=== PATIENT | female | born 1930 | race Caucasian/White ===

== ENCOUNTER 2017-02-18 08:33 | Inpatient (IN) | payer BC ==
[2017-02-17 15:02] VITALS: BMI 29.4
[2017-02-18] VITALS (28 sets, daily range): BP systolic 119–164; BP diastolic 60–94; PULSE 76–118; RESP 12–25; Ht 170.2 cm; Wt 83.2 kg
[~2017-02-18] VITALS: Ht 170.2 cm; Wt 83.2 kg
--- NOTE | 2017-02-18 07:53 | HPN ---
Date/Time of Note Date/Time of Note DATE: 02/18/17 TIME: 07:53 Interval H&P Admission Note Pt. seen H&P reviewed: No system changes ORLANDO OTTO MD Feb 18, 2017 07:53
[~2017-02-18 08:33] MED LIST: CEFAZOLIN 1 GM INJ ONE; ENOX80DI12 SC; LEVO50TA83 PO; RIVA15TA PO; WARF5TAB72 PO
[2017-02-18] MEDS ORDERED: MIDAZOLAM 1 MG/ML 2 ML INJ ONE (11:13)
[2017-02-18] MEDS ORDERED: FENTAnyl 50 MCG/ML VIAL ONE (11:13)
[2017-02-18] MEDS ORDERED: ROPIVACAINE 0.2% 20 ML VIAL ONE (11:14)
[2017-02-18] MEDS ORDERED: METOCLOPRAMIDE 10 MG INJ ONE ×2 (11:14→16:35)
[2017-02-18] MEDS ORDERED: ROPIVACAINE 0.5 % 30 ML VIAL ONE (11:14)
[2017-02-18] MEDS ORDERED: ASPI-664 PO (11:15)
[2017-02-18] MEDS ORDERED: MELO-216 PO (11:15)
[2017-02-18] MEDS ORDERED: MECL-77 PO (11:15)
[2017-02-18] MEDS ORDERED: TRANEXAMIC ACID 850 MG in SOD CHLORIDE 0.9% 100 ML IVPB ONE ×4 (11:30)
[2017-02-18] MEDS ORDERED: morphine SULFATE/PF (10 MG/10 ML) INJ ONE (12:19)
[2017-02-18] MEDS ORDERED: EPHEDrine SULFATE 50 MG/5 ML SYG ONE (13:01)
[2017-02-18] MEDS ORDERED: ETOMIDATE 20 MG INJ ONE (13:48)
[2017-02-18] MEDS ORDERED: ONDANSETRON 4 MG INJ ONE ×2 (15:03→16:13)
[2017-02-18] MEDS ORDERED: POLYMYXIN/BACITRACIN 1L IRRIG ONE (15:46)
--- NOTE | 2017-02-18 16:11 | OPR ---
Date/Time of Note Date/Time of Note DATE: 02/18/17 TIME: 16:02 Operative Report Preoperative Diagnosis Right knee osteoarthritis Postoperative Diagnosis Same Operation/Procedure Performed Right total knee replacement Surgeon see signature line Measurement Coordinator None Anesthesia Type: general, spinal Estimated Blood Loss: 100 - 150 ml's Transfusion none Specimen None Grafts/Implants Melanie implants Triathlon tibia size 4 Triathlon femoral component size 4, 150 mm stem Triathlon asymmetric patella size 38 mm Triathlon tibial bearing insert, 9 mm thickness Tubes/Drains None Complications none Disposition: PACU Indications Ms. Kelsie Grace is an 86-year-old female who has had progressive pain in her right knee she has failed nonoperative treatment she now presents for an elective right total knee replacement. Risks and benefits were discussed with the patient risks including but not limited to infection, bleeding, blood clots , fracture, dislocation, nerve damage, blood vessel damage, other medical anesthetic and surgical complications were discussed. Informed consent was obtained Procedure Description DESCRIPTION OF PROCEDURE: The patient's correct extremity was identified in the preoperative area. The patient was brought back to the operating room where a spinal anesthetic was placed followed by an adductor canal block. The correct extremity was then prepped and draped in the standard sterile manner. A timeout was performed. Esmarch was used to exsanguinate. The thigh tourniquet was inflated to 250 mmHg. I then made a standard midline incision for approaching the knee. I went through skin and subcutaneous tissue, made a medial parapatellar arthrotomy. Then, flexed the knee and introduced an intramedullary alignment guide. Distal femoral cut was made. After making the femoral cut notching along the anterior aspect of the distal femur was encountered. The metaphyseal bone in this area was significantly osteopenic. A posterior stabilized femoral implant was used. The box cut was made. I then turned my attention to the tibia. An extramedullary alignment guide was used to make the tibial cut. Flexion and extension gaps were checked. There were symmetric. The knee went from full extension to full flexion. I then turned my attention to the patella. I used an [id number] mill type cutting guide, cut the patellar to appropriate thickness and sized the patella. I then trialed using a stemmed femoral component and the tibial baseplate. The patella tracked well without any external pressure. I then made the peg holes for the femoral trial. Punched the tibia. I took out all trial components. Thoroughly irrigated the bony surfaces, dried them with a lap sponge. I then proceeded to cement the tibia, femur and patellar components. A trial insert was used till the cement hardened. After the cement hardened, I thoroughly irrigted the knee. The knee was well balanced. I then let down the tourniquet, obtained adequate hemostasis. I thoroughly irrigated the knee. I then impacted the appropriate all poly insert until it locked into place and I had full range of motion with just a jog of opening with varus and valgus stress. I then turned my attention to closure. I closed the medial parapatellar arthrotomy with interrupted #1 Vicryl, subcutaneous tissue was closed with 2-0 Vicryl, skin with marisol. Dry sterile dressings were applied. The patient had good perfusion to her foot with a 2+ dorsalis pedis pulse. She was then extubated and transported to recovery in stable condition. ORLANDO OTTO MD Feb 18, 2017 16:11
[2017-02-18] MEDS ORDERED: MEPERIDINE 25 MG INJ IV PRN (16:30)
[2017-02-18] MEDS ORDERED: FENTAnyl 50 MCG/ML VIAL IV PRN (16:30)
[2017-02-18] MEDS ORDERED: SENNA/DOCUSATE NA (8.6MG/50MG) TAB PO PRN (16:30)
[2017-02-18] MEDS ORDERED: ONDANSETRON 4 MG INJ IV PRN (16:30)
[2017-02-18] MEDS ORDERED: DIPHENHYDRAMINE 50 MG INJ IV PRN (16:30)
[2017-02-18] MEDS ORDERED: MAGNESIUM HYDROXIDE 30ML CUP PO PRN (16:30)
[2017-02-18] MEDS ORDERED: NALOXONE (0.4 MG/ML) INJ IV PRN (16:30)
[2017-02-18] MEDS: CEFAZOLIN 1 GM/50 ML (PMX) 50 ML IVPB SCH (16:41)
--- NOTE | 2017-02-18 16:56 | HP ---
Date/Time of Note Date/Time of Note DATE: 02/18/17 TIME: 16:43 Assessment/Plan VTE Prophylaxis VTE Prophylaxis Intervention: LMWH Lines/Catheters IV Catheter Type (from Nrsg): Peripheral IV Urinary Cath still in place: Yes Reason Cath still needed: other (indicate) (Postoperative) Assessment/Plan Assessment/Plan 86-year-old female with: 1. Status post right TKA, POD#0 Patient going to medical surgical bed, per orthopedic surgery, she will be on Lovenox for DVT prophylaxis while inpatient will plan to change to Xarelto versus Eliquis for outpatient DVT prophylaxis post TKA at discharge. Pain control Zofran as needed for nausea, bowel regimen while narcotics PT Follow-up further recommendations per orthopedic surgery. 2. Hypothyroidism: Resume Synthroid 3. Benign positional vertigo: Continue meclizine as needed 4. Breast cancer, status post left breast lumpectomy, status post Arimidex: Stable Prophylaxis: Pepcid for GI prophylaxis, Lovenox for DVT prophylaxis Disposition: Medical surgical admit post total knee arthroplasty, internal medicine and orthopedic surgery following. HPI/ROS Admit Date/Time Admit Date/Time Feb 18, 2017 at 08:33 Hx of Present Illness Chief complaint: Elective right total knee replacement History of presenting illness: This is a 86-year-old female with previous history of right knee osteoarthritis, breast cancer status post left breast lumpectomy, spinal stenosis who was brought in electively at [facility] for scheduled right total knee arthroplasty. Postoperatively patient is being admitted to a medical surgical bed for pain management and physical therapy. When reviewing the patient's outpatient records, she apparently had a history of phlebitis of the left lower extremity after a flight. She will be on Lovenox for DVT prophylaxis while inpatient with plan to switch to Xarelto or Eliquis as outpatient according to orthopedic surgery, Dr. Simpson For now while in the PACU, patient is awake and alert, she is having a lot of nausea and also vomiting, coming out of anesthesia and complaining of right knee pain. She will be medicated appropriately. ROS Constitutional: no complaints Eyes: no complaints ENT: no complaints Respiratory: no complaints Cardiovascular: no complaints Gastrointestinal: nausea, vomiting Musculoskeletal: other (Right knee pain, status post right TKA) Skin: no complaints Neurologic: no complaints Endocrine: no complaints Lymphatic: no complaints Psychological: no complaints Immunologic: no complaints PMH/Family/Social Past Medical History Right knee osteoarthritis Benign positional vertigo Breast cancer, status post left breast lumpectomy and off Arimidex now Spinal stenosis Phlebitis of the left lower extremity after flight Aortic atherosclerosis Hypothyroidism Past Surgical History Status post left breast lumpectomy 05/25/11 Status post left TKA Status post left foot surgery Status post bilateral cataract surgery Family History Significant Family History: no pertinent family hx Social History Alcohol Use: none Smoking Status: Never smoker Drug Use: none Exam/Review of Systems Vital Signs Vitals Vital Signs Date Time Temp Pulse Resp B/P Pulse Ox O2 Delivery O2 Flow Rate FiO2 02/18/17 15:55 88 15 148/78 96 Room Air 02/18/17 15:51 2.0 02/18/17 15:41 98.1 Exam Constitutional: alert, distress (With ongoing nausea and vomiting), oriented, well developed Respiratory: clear to auscultation, normal air movement Cardiovascular: nl pulses, regular rate and rhythm Gastrointestinal: non-tender, soft Musculoskeletal: other (Status post right TKA) Extremities: normal pulses 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, nl mental status, nl speech, other ( Postoperative) Additional Comments Preoperative labs on 02/12/17 showing: Potassium 4.3 Creatinine 0.57 BUN 19 Hemoglobin 13.5 Hematocrit 39.7 Medications Medications Current Medications Sodium Chloride (NS) 1,000 ml @ 80 mls/hr [id number] IV ; Start 02/18/17 at 16:12 Ondansetron HCl 4 mg 4 mg Q4H PRN IV NAUSEA AND/OR VOMITING; Start 02/19/17 at 16:30 Cefazolin Sodium (Ancef 1 Gm/50 ml (Pmx)) 50 ml @ 100 mls/hr Q8H IVPB ; Start 02/18/17 at 16:30; Stop 02/19/17 at 08:59 Enoxaparin Sodium (Lovenox) 30 mg BID SC ; Start 02/18/17 at 21:00 Docusate Sodium (Colace) 200 mg BID PO ; Start 02/19/17 at 09:00; Stop at 08:59 Senna/Docusate Sodium (Senokot-S) 2 tab BID PRN PO CONSTIPATION; Start at 16:30 Magnesium Hydroxide (Milk Of Mag) 30 ml HS PRN PO CONSTIPATION; Start at 16:30 Naloxone HCl (Narcan) 0.2 mg Q2M PRN IV DECREASED REPIRATORY RATE; Start at 16:30 Procedures Procedures Status post right TKA BENTON SEYMOUR Feb 18, 2017 16:53
--- NOTE | 2017-02-18 16:58 | RADRPT ---
PROCEDURE: XR knee CLINICAL INDICATION: Right knee replacement TECHNIQUE: Three portable views of the right knee COMPARISON: None available FINDINGS: Status post right knee replacement. Hardware is intact. A portion of the femoral component of the ar throplasty and a portion of the patella are not included on the lateral image. It is difficult to ev aluate the space between the femoral and tibial hardware components on this portable study. Osseous structures are diffusely demineralized. IMPRESSION: 1. Status post right knee replacement. Compare to prior corresponding imaging studies. RPTAT: TT Physician Nando Date Time Electronically viewed and signed by Physician Nando on 02/18/2017 16:58 JS/
[2017-02-18] MEDS ORDERED: METOCLOPRAMIDE 10 MG INJ IV PRN (17:00)
[2017-02-18] MEDS ORDERED: NACL 0.9% 3 ML SYG IV SCH (17:00)
[2017-02-18] MEDS ORDERED: hydrALAzine 20 MG INJ IV PRN (17:00)
--- NOTE | 2017-02-18 17:44 | RADRPT ---
PROCEDURE: Right knee x-ray CLINICAL INDICATION: Post Op Film: Total Knee Replacement xray in PACU TECHNIQUE: Two views of the right knee were obtained. COMPARISON: 02/18/2017 right knee. FINDINGS: The patient is status post total knee replacement . Intact total knee prosthesis with anatomic align ment. There are postsurgical changes in the subcutaneous soft tissues. There is normal mineralization. No acute fracture or dislocation is seen. IMPRESSION: Postsurgical changes of the knee status post knee replacement. Intact prosthesis with anatomic align ment. RPTAT:AAJJ Physician Adeline Date Time Electronically viewed and signed by Physician Adeline on 02/18/2017 17:44 AXEL/
[2017-02-18] MEDS: SOD CHLORIDE 0.9% 1,000 ML IV SCH (17:57)
[2017-02-18] MEDS: METOCLOPRAMIDE 10 MG INJ IV PRN (19:36)
[2017-02-18] MEDS: FAMOTIDINE 20 MG TAB PO SCH (21:13)
[2017-02-18] MEDS: ENOXAPARIN 30 MG/0.3 ML SYG SC SCH (21:40)
[2017-02-18] MEDS: MECLIZINE 25 MG TAB PO PRN (23:29)
[2017-02-19] VITALS (7 sets, daily range): BP systolic 114–175; BP diastolic 71–78; PULSE 88–101; RESP 16–20
[2017-02-19] MEDS: CEFAZOLIN 1 GM/50 ML (PMX) 50 ML IVPB SCH ×2 (00:40→08:30)
[2017-02-19] MEDS: METOCLOPRAMIDE 10 MG INJ IV PRN ×3 (03:33→15:29)
[2017-02-19 05:23] LABS: BASOPHILS % 0.1 % (0.0-2.0); HEMATOCRIT 37.2 % (37.0-47.0); HEMOGLOBIN 12.2 g/dl (12.0-16.0); LYMPHOCYTES # 0.7 10^3/ul (0.8-2.9); LYMPHOCYTES % 8.8 % (15.0-51.0); MEAN CORPUSCULAR HEMOGLOBIN 29.8 pg (29.0-33.0); MEAN CORPUSCULAR HGB CONC 32.8 g/dl (32.0-37.0); MEAN CORPUSCULAR VOLUME 90.7 fl (82.0-101.0); MONOCYTE # 0.6 10^3/ul (0.3-0.9); MONOCYTES % 8.1 % (0.0-11.0); NEUTROPHIL # 6.6 10^3/ul (1.6-7.5); NEUTROPHILS % 82.5 % (39.0-77.0); PLATELET COUNT 188 10^3/UL (140-415); RED CELL DISTRIBUTION WIDTH 14.9 % (11.5-14.5); WHITE BLOOD COUNT 7.9 10^3/ul (4.8-10.8)
[2017-02-19] MEDS: MECLIZINE 25 MG TAB PO PRN (06:11)
[2017-02-19] MEDS: LEVOTHYROXINE 50 MCG TAB PO SCH (06:11)
[2017-02-19 06:31] LABS: MAGNESIUM 1.9 mg/dl (1.7-2.5); PHOSPHORUS 3.5 mg/dl (2.5-4.9)
[2017-02-19 06:32] LABS: CREATININE 0.57 mg/dl (0.44-1.00); POTASSIUM 4.8 mmol/L (3.5-5.1)
[2017-02-19] MEDS: SOD CHLORIDE 0.9% 1,000 ML IV SCH ×2 (06:57→16:34)
[2017-02-19] MEDS: DOCUSATE SODIUM 100 MG CAP PO SCH ×3 (08:33→21:00)
[2017-02-19] MEDS: FAMOTIDINE 20 MG TAB PO SCH ×2 (08:33→20:51)
[2017-02-19] MEDS: ENOXAPARIN 30 MG/0.3 ML SYG SC SCH ×2 (09:07→20:56)
[2017-02-19 10:54] LABS: ADD UMIC YES; UR ASCORBIC ACID NEGATIVE (NEGATIVE); UR BACTERIA FEW /HPF (NONE SEEN); UR BILIRUBIN (Dip) NEGATIVE (NEGATIVE); UR BLOOD (Dip) 3+ mg/dL (NEGATIVE); UR CLARITY SLIGHTLY CLOUDY (CLEAR); UR COLOR YELLOW (YELLOW); UR GLUCOSE (Dip) 1+ mg/dL (NEGATIVE); UR KETONES (Dip) 2+ mg/dL (NEGATIVE); UR LEUKOCYTE ESTERASE (Dip) NEGATIVE Leu/ul (NEGATIVE); UR NITRITE (Dip) NEGATIVE (NEGATIVE); UR RBC 178 /HPF (0-5); UR SPECIFIC GRAVITY (Dip) 1.017 (1.003-1.030); UR SQUAMOUS EPITHELIAL CELL FEW /HPF (FEW); UR TOTAL PROTEIN (Dip) NEGATIVE (NEGATIVE); UR UROBILINOGEN (Dip) NEGATIVE (NEGATIVE)
--- NOTE | 2017-02-19 12:13 | PN ---
Date/Time of Note Date/Time of Note DATE: 02/19/17 TIME: 12:11 Assessment/Plan Lines/Catheters IV Catheter Type (from Nrsg): Peripheral IV Joshi in Place (from Nrsg): Yes Assessment/Plan Assessment/Plan Postop day 1. Patient is doing well. Pain control Encourage use of incentive spirometer Out of bed with physical therapy for gait training. Use of CPM. SCDs and Eliquis for DVT prophylaxis. Joshi catheter has been removed. Start discharge planning Subjective 24 Hr Interval Summary Patient complains of pain. She worked with physical therapy and that CPM earlier today. Exam/Review of Systems Vital Signs Vitals Vital Signs Date Time Temp Pulse Resp B/P Pulse Ox O2 Delivery O2 Flow Rate FiO2 02/19/17 08:00 97.8 80 18 175/76 100 02/18/17 21:00 Nasal Cannula 2.0 Intake and Output 02/18/17 02/18/17 02/19/17 15:00 23:00 07:00 Intake Total 1300 ml 1250 ml Output Total 1050 ml 1200 ml Balance 1300 ml -1050 ml 50 ml Exam Free Text/Dictation Right lower extremity: The dressing is clean dry and intact. The thigh and calf are soft. She is intact motor and sensory function in the right foot. Her foot is warm and well-perfused. Results Result Diagram: 02/19/17 0441 02/19/17 044 ORLANDO OTTO MD Feb 19, 2017 12:13
[2017-02-19] MEDS ORDERED: ONDANSETRON 4 MG INJ IV PRN (16:30)
--- NOTE | 2017-02-19 21:53 | PN ---
Date/Time of Note Date/Time of Note DATE: 02/19/17 TIME: 21:52 Assessment/Plan VTE Prophylaxis VTE Prophylaxis Intervention: LMWH Lines/Catheters IV Catheter Type (from Nrs): Peripheral IV Urinary Cath still in place: No Assessment/Plan Assessment/Plan [facility] 1. 86-year-old woman post-op day 1 s/p right knee total arthroplasty. Complaining of more pain than she remembers from the other knee, but still able to sleep. 2. Benign positional vertigo history * Continue meclizine as needed 3. History of breast cancer, s/p left breast lumpectomy and Arimidex treatment * Physical therapy to see * Use of CPM * Lovenox 30mg SQ BID for DVT prevention * Continue Synthroid for hypothyroidism * Full-code * Anticipating discharge home once she recovers more normal bowel function and is weight-bearing. Vick Guaman MD PhD [phone] Subjective 24 Hr Interval Summary Free Text/Dictation Complaining of considerable ongoing pain in the right knee post-operatively. Much less nauseated or dizzy. Doing exercises with the CPM. Ate some jello tonight. Still no flatus or bowel movement. Not out of bed yet when I saw her this morning.Her daughter came to visit. Exam/Review of Systems Vital Signs Vitals Vital Signs Date Time Temp Pulse Resp B/P Pulse Ox O2 Delivery O2 Flow Rate FiO2 02/19/17 20:55 99.5 96 18 163/71 90 02/18/17 21:00 Nasal Cannula 2.0 Intake and Output 02/18/17 02/18/17 02/19/17 15:00 23:00 07:00 Intake Total 1300 ml 1250 ml Output Total 1050 ml 1200 ml Balance 1300 ml -1050 ml 50 ml Exam Constitutional: alert, oriented, well developed, not uncomfortable-appearing Respiratory: clear to auscultation, normal air movement Cardiovascular: Symmetric pulses, regular rhythm, normal rate, neurovascularly intact in both legs. Gastrointestinal: non-tender, soft, no HSM, normal bowel sounds. Musculoskeletal: Status post right TKA, bandaged, dry. No rafiq arthritis in other joints. Neurological: Normal memory and executive function, normal affect, [employer] II-XII intact, nl mental status, nl speech. Peripheral motor 5/5 with downgoing toes. Results Result Diagram: 02/19/17 0441 02/19/17 0441 Results 24 hrs Laboratory Tests Test 02/19/17 04:41 02/19/17 06:10 White Blood Count 7.9 Red Blood Count 4.10 L Hemoglobin 12.2 Hematocrit 37.2 Mean Corpuscular Volume 90.7 Mean Corpuscular Hemoglobin 29.8 Mean Corpuscular Hemoglobin Concent 32.8 Red Cell Distribution Width 14.9 H Platelet Count 188 Mean Platelet Volume 10.0 # Neutrophils % 82.5 H Lymphocytes % 8.8 L Monocytes % 8.1 Eosinophils % 0.0 Basophils % 0.1 Nucleated Red Blood Cells % 0.0 Neutrophils # 6.6 Lymphocytes # 0.7 L Monocytes # 0.6 Eosinophils # 0.0 Basophils # 0.0 Nucleated Red Blood Cells # 0.0 Sodium Level 144 Potassium Level 4.8 Chloride Level 108 Carbon Dioxide Level 26 Anion Gap 15 Blood Urea Nitrogen 15 Creatinine 0.57 Glucose Level 132 Calcium Level 8.0 L Phosphorus Level 3.5 Magnesium Level 1.9 Urine Color YELLOW Urine Clarity SLIGHTLY CLOUDY A Urine pH 5.0 Urine Specific [place] 1.017 Urine Ketones 2+ H Urine Nitrite NEGATIVE Urine Bilirubin NEGATIVE Urine Urobilinogen NEGATIVE Urine Leukocyte Esterase NEGATIVE Urine Microscopic RBC 178 H Urine Microscopic WBC 32 H Urine Squamous Epithelial Cells FEW Urine Bacteria FEW A Urine Hemoglobin 3+ H Urine Glucose 1+ H Urine Total Protein NEGATIVE Medications Medications Current Medications Sodium Chloride (NS) 1,000 ml @ 80 mls/hr [id number] IV Last administered on 16:34; Admin Dose 80 MLS/HR; Start 02/18/17 at 16:12 Ondansetron HCl (Zofran Inj) 4 mg Q4H PRN IV NAUSEA AND/OR VOMITING; Start at 16:30 Enoxaparin Sodium (Lovenox) 30 mg BID SC Last administered on 02/19/17 20:56 ; Admin Dose 30 MG; Start 02/18/17 at 21:00 Docusate Sodium (Colace) 200 mg BID PO Last administered on 02/19/17 20:51; Admin Dose 200 MG; Start 02/19/17 at 09:00; Stop 02/22/17 at 08:59 Senna/Docusate Sodium (Senokot-S) 2 tab BID PRN PO CONSTIPATION; Start at 16:30 Magnesium Hydroxide (Milk Of Mag) 30 ml HS PRN PO CONSTIPATION; Start at 16:30 Naloxone HCl (Narcan) 0.2 mg Q2M PRN IV DECREASED REPIRATORY RATE; Start at 16:30 Famotidine (Pepcid) 20 mg Q12 PO Last administered on 02/19/17 20:51; Admin Dose 20 MG; Start 02/18/17 at 21:00 Meclizine HCl (Antivert) 25 mg Q8 PRN PO VERTIGO Last administered on 06:11; Admin Dose 25 MG; Start 02/18/17 at 17:00 Hydralazine HCl (Apresoline) 10 mg Q8H PRN IV ELEVATED BLOOD PRESSURE Last administered on 02/19/17 14:15; Admin Dose 10 MG; Start 02/18/17 at 17:00 Metoclopramide HCl (Reglan) 10 mg Q6H PRN IV nausea Last administered on 15:29; Admin Dose 10 MG; Start 02/18/17 at 19:00 Tramadol HCl (Ultracet) 2 tab Q6H PRN PO pain; Start 02/18/17 at 19:00 DOMINGO GUAMAN M.D. Feb 19, 2017 21:53
[2017-02-19] MEDS ORDERED: ACETAMINOPHEN 325 MG TAB PO PRN (22:00)
[2017-02-19] MEDS: traMADol-APAP 37.5-325 1 TAB PO PRN ×2 (22:13→22:32)
--- NOTE | 2017-02-19 22:34 | PN ---
Date/Time of Note Date/Time of Note DATE: 02/19/17 TIME: 22:32 Assessment/Plan VTE Prophylaxis VTE Prophylaxis Intervention: other Lines/Catheters IV Catheter Type (from Nrsg): Peripheral IV Urinary Cath still in place: Yes Subjective 24 Hr Interval Summary Free Text/Dictation Anesthesia Note A 86 year female s/p knee arthroplasty under spinal duramorph [place] is doing well, no pain, itching, headache, carley pain or neural deficit. n/ v is controlled with medicine. back is clean. care per surgery team. Exam/Review of Systems Vital Signs Vitals Vital Signs Date Time Temp Pulse Resp B/P Pulse Ox O2 Delivery O2 Flow Rate FiO2 02/19/17 20:55 99.5 96 18 163/71 90 02/18/17 21:00 Nasal Cannula 2.0 Intake and Output 02/18/17 02/18/17 02/19/17 15:00 23:00 07:00 Intake Total 1300 ml 1250 ml Output Total 1050 ml 1200 ml Balance 1300 ml -1050 ml 50 ml Results Result Diagram: 02/19/17 0441 02/19/17 0441 Results 24 hrs Laboratory Tests Test 02/19/17 04:41 02/19/17 06:10 White Blood Count 7.9 Red Blood Count 4.10 L Hemoglobin 12.2 Hematocrit 37.2 Mean Corpuscular Volume 90.7 Mean Corpuscular Hemoglobin 29.8 Mean Corpuscular Hemoglobin Concent 32.8 Red Cell Distribution Width 14.9 H Platelet Count 188 Mean Platelet Volume 10.0 # Neutrophils % 82.5 H Lymphocytes % 8.8 L Monocytes % 8.1 Eosinophils % 0.0 Basophils % 0.1 Nucleated Red Blood Cells % 0.0 Neutrophils # 6.6 Lymphocytes # 0.7 L Monocytes # 0.6 Eosinophils # 0.0 Basophils # 0.0 Nucleated Red Blood Cells # 0.0 Sodium Level 144 Potassium Level 4.8 Chloride Level 108 Carbon Dioxide Level 26 Anion Gap 15 Blood Urea Nitrogen 15 Creatinine 0.57 Glucose Level 132 Calcium Level 8.0 L Phosphorus Level 3.5 Magnesium Level 1.9 Urine Color YELLOW Urine Clarity SLIGHTLY CLOUDY A Urine pH 5.0 Urine Specific [place] 1.017 Urine Ketones 2+ H Urine Nitrite NEGATIVE Urine Bilirubin NEGATIVE Urine Urobilinogen NEGATIVE Urine Leukocyte Esterase NEGATIVE Urine Microscopic RBC 178 H Urine Microscopic WBC 32 H Urine Squamous Epithelial Cells FEW Urine Bacteria FEW A Urine Hemoglobin 3+ H Urine Glucose 1+ H Urine Total Protein NEGATIVE Medications Medications Current Medications Sodium Chloride (NS) 1,000 ml @ 80 mls/hr [id number] IV Last administered on 16:34; Admin Dose 80 MLS/HR; Start 02/18/17 at 16:12 Ondansetron HCl (Zofran Inj) 4 mg Q4H PRN IV NAUSEA AND/OR VOMITING; Start at 16:30 Enoxaparin Sodium (Lovenox) 30 mg BID SC Last administered on 02/19/17 20:56 ; Admin Dose 30 MG; Start 02/18/17 at 21:00 Docusate Sodium (Colace) 200 mg BID PO Last administered on 02/19/17 20:51; Admin Dose 200 MG; Start 02/19/17 at 09:00; Stop 02/22/17 at 08:59 Senna/Docusate Sodium (Senokot-S) 2 tab BID PRN PO CONSTIPATION; Start at 16:30 Magnesium Hydroxide (Milk Of Mag) 30 ml HS PRN PO CONSTIPATION; Start at 16:30 Naloxone HCl (Narcan) 0.2 mg Q2M PRN IV DECREASED REPIRATORY RATE; Start at 16:30 Famotidine (Pepcid) 20 mg Q12 PO Last administered on 02/19/17 20:51; Admin Dose 20 MG; Start 02/18/17 at 21:00 Meclizine HCl (Antivert) 25 mg Q8 PRN PO VERTIGO Last administered on 06:11; Admin Dose 25 MG; Start 02/18/17 at 17:00 Hydralazine HCl (Apresoline) 10 mg Q8H PRN IV ELEVATED BLOOD PRESSURE Last administered on 02/19/17 14:15; Admin Dose 10 MG; Start 02/18/17 at 17:00 Metoclopramide HCl (Reglan) 10 mg Q6H PRN IV nausea Last administered on 15:29; Admin Dose 10 MG; Start 02/18/17 at 19:00 Tramadol HCl (Ultracet) 2 tab Q6H PRN PO pain; Start 02/18/17 at 19:00 Acetaminophen (Tylenol Tab) 650 mg Q4H PRN PO headache or fever; Start at 22:00 RADHA DIMAS MD Feb 19, 2017 22:34
[2017-02-20 02:28] VITALS: BP 143/63; RESP 18
[2017-02-20 05:14] LABS: BASOPHILS % 0.2 % (0.0-2.0); EOSINOPHILS % 0.1 % (0.0-7.0); HEMOGLOBIN 10.5 g/dl (12.0-16.0); LYMPHOCYTES # 0.9 10^3/ul (0.8-2.9); LYMPHOCYTES % 10.7 % (15.0-51.0); MEAN CORPUSCULAR HEMOGLOBIN 29.8 pg (29.0-33.0); MEAN CORPUSCULAR HGB CONC 33.9 g/dl (32.0-37.0); MEAN CORPUSCULAR VOLUME 88.1 fl (82.0-101.0); MEAN PLATELET VOLUME 9.7 fl (7.4-10.4); MONOCYTES % 11.1 % (0.0-11.0); NEUTROPHIL # 6.6 10^3/ul (1.6-7.5); NEUTROPHILS % 77.4 % (39.0-77.0); PLATELET COUNT 157 10^3/UL (140-415); RED BLOOD COUNT 3.52 10^6/ul (4.20-5.40); RED CELL DISTRIBUTION WIDTH 14.6 % (11.5-14.5); WHITE BLOOD COUNT 8.6 10^3/ul (4.8-10.8)
[2017-02-20 05:31] LABS: CALCIUM 8.1 mg/dl (8.4-10.2); CREATININE 0.51 mg/dl (0.44-1.00); POTASSIUM 3.5 mmol/L (3.5-5.1)
[2017-02-20] MEDS: LEVOTHYROXINE 50 MCG TAB PO SCH (06:12)
[2017-02-20] MEDS: MECLIZINE 25 MG TAB PO PRN (06:12)
[2017-02-20 07:38] VITALS: BP 182/85; RESP 20
[2017-02-20] MEDS: SOD CHLORIDE 0.9% 1,000 ML IV SCH (07:39)
[2017-02-20] MEDS: FAMOTIDINE 20 MG TAB PO SCH ×2 (08:48→20:58)
[2017-02-20] MEDS: DOCUSATE SODIUM 100 MG CAP PO SCH ×2 (08:49→20:57)
[2017-02-20] MEDS: traMADol-APAP 37.5-325 1 TAB PO PRN ×2 (08:49→17:28)
[2017-02-20] MEDS: ENOXAPARIN 30 MG/0.3 ML SYG SC SCH ×2 (09:49→20:56)
[2017-02-20] MEDS: AMLODIPINE 5 MG TAB PO SCH ×3 (09:50→20:59)
--- NOTE | 2017-02-20 16:51 | PN ---
Date/Time of Note Date/Time of Note DATE: 02/20/17 TIME: 16:45 Assessment/Plan VTE Prophylaxis VTE Prophylaxis Intervention: LMWH Lines/Catheters IV Catheter Type (from Nrs): Saline Lock Urinary Cath still in place: No Assessment/Plan Assessment/Plan [facility] 1. 86-year-old woman post-op day 2 s/p right knee total arthroplasty. Much- improved pain today, though still not ambulating very much. * Physical therapy * Use of CPM * Lovenox 30mg SQ BID for DVT prevention * Continue Synthroid for hypothyroidism * Full-code * Discussed discharge home, anticipating return tomorrow to more normal bowel function with increased weight-bearing. Her daughter can come pick her up about 6pm Tuesday. 2. Benign positional vertigo history * Continue meclizine as needed 3. History of breast cancer, s/p left breast lumpectomy and Arimidex treatment 4. Hypertension, with elevated pressures today in the 170s systolic * Discontinue normal saline; drinking adequately * Increased amlodipine to 5mg PO BID Vick Guaman MD PhD [phone] Subjective 24 Hr Interval Summary Free Text/Dictation Feeling much better today. Still no flatus or bowel movement, but eating a normal diet now with no nausea. Much-improved pain in the right knee, with use of the CPM. Exam/Review of Systems Vital Signs Vitals Vital Signs Date Time Temp Pulse Resp B/P Pulse Ox O2 Delivery O2 Flow Rate FiO2 02/20/17 07:38 98.3 104 20 182/85 99 02/18/17 21:00 Nasal Cannula 2.0 Intake and Output 02/19/17 02/19/17 02/20/17 15:00 23:00 07:00 Intake Total 1400 ml 1500 ml Output Total 300 ml 750 ml Balance 1100 ml 750 ml Exam Constitutional: Friendly, not uncomfortable-appearing Respiratory: clear to auscultation, normal air movement Cardiovascular: Symmetric pulses, regular rhythm, normal rate, neurovascularly intact in both legs. Gastrointestinal: non-tender, soft, no HSM, normal bowel sounds. Musculoskeletal: Status post right TKA, bandaged, dry. No rafiq arthritis in other joints. 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 Peripheral motor 5/5 with downgoing toes. Results Result Diagram: 02/20/178 02/20/17 0438 Results 24 hrs Laboratory Tests Test 02/20/17 04:38 White Blood Count 8.6 Red Blood Count 3.52 L Hemoglobin 10.5 L Hematocrit 31.0 L Mean Corpuscular Volume 88.1 Mean Corpuscular Hemoglobin 29.8 Mean Corpuscular Hemoglobin Concent 33.9 Red Cell Distribution Width 14.6 H Platelet Count 157 Mean Platelet Volume 9.7 Neutrophils % 77.4 H Lymphocytes % 10.7 L Monocytes % 11.1 H Eosinophils % 0.1 Basophils % 0.2 Nucleated Red Blood Cells % 0.0 Neutrophils # 6.6 Lymphocytes # 0.9 Monocytes # 1.0 H Eosinophils # 0.0 Basophils # 0.0 Nucleated Red Blood Cells # 0.0 Sodium Level 139 Potassium Level 3.5 Chloride Level 110 Carbon Dioxide Level 23 Anion Gap 10 # Blood Urea Nitrogen 11 Creatinine 0.51 Glucose Level 98 Calcium Level 8.1 L Medications Medications Current Medications Sodium Chloride (NS) 1,000 ml @ 80 mls/hr [id number] IV Last administered on 16:34; Admin Dose 80 MLS/HR; Start 02/18/17 at 16:12 Ondansetron HCl (Zofran Inj) 4 mg Q4H PRN IV NAUSEA AND/OR VOMITING Last administered on 02/20/17 09:51; Admin Dose 4 MG; Start 02/19/17 at 16:30 Enoxaparin Sodium (Lovenox) 30 mg BID SC Last administered on 02/20/17 09:49 ; Admin Dose 30 MG; Start 02/18/17 at 21:00 Docusate Sodium (Colace) 200 mg BID PO Last administered on 02/20/17 08:49; Admin Dose 200 MG; Start 02/19/17 at 09:00; Stop 02/22/17 at 08:59 Senna/Docusate Sodium (Senokot-S) 2 tab BID PRN PO CONSTIPATION; Start at 16:30 Magnesium Hydroxide (Milk Of Mag) 30 ml HS PRN PO CONSTIPATION; Start at 16:30 Naloxone HCl (Narcan) 0.2 mg Q2M PRN IV DECREASED REPIRATORY RATE; Start at 16:30 Famotidine (Pepcid) 20 mg Q12 PO Last administered on 02/20/17 08:48; Admin Dose 20 MG; Start 02/18/17 at 21:00 Meclizine HCl (Antivert) 25 mg Q8 PRN PO VERTIGO Last administered on 06:12; Admin Dose 25 MG; Start 02/18/17 at 17:00 Hydralazine HCl (Apresoline) 10 mg Q8H PRN IV ELEVATED BLOOD PRESSURE Last administered on 02/19/17 14:15; Admin Dose 10 MG; Start 02/18/17 at 17:00 Metoclopramide HCl (Reglan) 10 mg Q6H PRN IV nausea Last administered on 15:29; Admin Dose 10 MG; Start 02/18/17 at 19:00 Tramadol HCl (Ultracet) 2 tab Q6H PRN PO pain Last administered on 02/20/17 08:49; Admin Dose 2 TAB; Start 02/18/17 at 19:00 Acetaminophen (Tylenol Tab) 650 mg Q4H PRN PO headache or fever; Start at 22:00 Amlodipine Besylate (Norvasc) 5 mg DAILY PO Last administered on 02/20/17 09: 54; Admin Dose 5 MG; Start 02/20/17 at 08:51 DOMINGO GUAMAN M.D. Feb 20, 2017 16:51
[2017-02-20] MEDS ORDERED: AMLODIPINE 5 MG TAB ONE (19:52)
[2017-02-20 20:05] VITALS: BP 159/72; RESP 20
[2017-02-21] MEDS: FAMOTIDINE 20 MG TAB PO SCH (00:11)
[2017-02-21 00:20] VITALS: BP 84/72; RESP 20
[2017-02-21 02:27] VITALS: BP 156/72; RESP 18
[2017-02-21 05:05] LABS: BASOPHILS % 0.4 % (0.0-2.0); EOSINOPHILS # 0.1 10^3/ul (0.0-0.5); EOSINOPHILS % 1.3 % (0.0-7.0); HEMATOCRIT 30.1 % (37.0-47.0); HEMOGLOBIN 10.4 g/dl (12.0-16.0); LYMPHOCYTES % 14.6 % (15.0-51.0); MEAN CORPUSCULAR HEMOGLOBIN 30.1 pg (29.0-33.0); MEAN CORPUSCULAR HGB CONC 34.6 g/dl (32.0-37.0); MEAN CORPUSCULAR VOLUME 87.2 fl (82.0-101.0); MEAN PLATELET VOLUME 10.1 fl (7.4-10.4); MONOCYTE # 0.8 10^3/ul (0.3-0.9); MONOCYTES % 11.2 % (0.0-11.0); NEUTROPHIL # 5.1 10^3/ul (1.6-7.5); NEUTROPHILS % 71.8 % (39.0-77.0); PLATELET COUNT 167 10^3/UL (140-415); RED BLOOD COUNT 3.45 10^6/ul (4.20-5.40); RED CELL DISTRIBUTION WIDTH 14.6 % (11.5-14.5); WHITE BLOOD COUNT 7.1 10^3/ul (4.8-10.8)
[2017-02-21 05:40] LABS: CREATININE 0.5 mg/dl (0.44-1.00); POTASSIUM 3.6 mmol/L (3.5-5.1)
[2017-02-21 07:21] VITALS: BP 167/77; RESP 18
[2017-02-21] MEDS: LEVOTHYROXINE 50 MCG TAB PO SCH (07:30)
[2017-02-21] MEDS: DOCUSATE SODIUM 100 MG CAP PO SCH ×2 (09:00→09:07)
[2017-02-21] MEDS: AMLODIPINE 5 MG TAB PO SCH ×2 (09:00→09:07)
[2017-02-21] MEDS: ENOXAPARIN 30 MG/0.3 ML SYG SC SCH (09:12)
--- NOTE | 2017-02-21 09:15 | PN ---
Date/Time of Note Date/Time of Note DATE: 02/21/17 TIME: 09:13 Assessment/Plan Lines/Catheters IV Catheter Type (from Nrsg): Peripheral IV Joshi in Place (from Nrsg): No Assessment/Plan Assessment/Plan Postop day 3 post right total knee replacement. Patient is doing very well. She will continue working with the physical therapist for CPM and gait training. She is currently on Lovenox which can be transitioned to Eliquis upon discharge. She will need DVT prophylaxis for 2 weeks. She will need home DME' s including frontwheel walker, elevated toilet seat, CPM for home use as well as home PT. Follow-up in my office in 2 weeks time. Subjective 24 Hr Interval Summary Her pain is much better today. She has been working with physical therapy. Exam/Review of Systems Vital Signs Vitals Vital Signs Date Time Temp Pulse Resp B/P Pulse Ox O2 Delivery O2 Flow Rate FiO2 02/21/17 07:21 98.4 86 18 167/77 90 02/18/17 21:00 Nasal Cannula 2.0 Intake and Output 02/20/17 02/20/17 02/21/17 15:00 23:00 07:00 Intake Total 920 ml 400 ml Output Total 1100 ml Balance -180 ml 400 ml Exam Free Text/Dictation Her right knee dressing is clean dry and intact. There is no surrounding erythema. Calf is soft and nontender. The foot is warm well perfused. She has intact motor and sensory function in the right foot. Results Result Diagram: 02/21/17 0439 02/21/17 0439 ORLANDO OTTO MD Feb 21, 2017 09:15
--- NOTE | 2017-02-21 10:41 | PN ---
Date/Time of Note Date/Time of Note DATE: 02/21/17 TIME: 10:30 Assessment/Plan VTE Prophylaxis VTE Prophylaxis Intervention: LMWH Lines/Catheters IV Catheter Type (from Nrs): Peripheral IV Urinary Cath still in place: No Assessment/Plan Assessment/Plan 86-year-old female with: 1. Status post right TKA, POD#3 Patient doing well, she will be discharged home today with home health PT and a CPM machine. She reports that she already has a forward wheel walker and or the DME is at home from her previous total knee replacement. Tramadol for pain control, patient cannot tolerate the oral narcotics. Follow-up with orthopedic surgery within 1-2 weeks and primary care physician within 1 week. She will be discharged on Xarelto x 21 days prescription. 2. Hypothyroidism: Continue Synthroid 3. Benign positional vertigo: Continue meclizine as needed 4. Breast cancer, status post left breast lumpectomy, status post Arimidex: Stable 5. Hypertension: Likely secondary to pain and or episodes of nausea prior, patient is refusing blood pressure medications. She is agreeable to monitor as an outpatient and follow-up with her primary care physician. Prophylaxis: Pepcid for GI prophylaxis, Lovenox for DVT prophylaxis Disposition: Discharge home today with home health PT, CPM machine. Patient reports she already has a four-wheel walker and all the equipment at home.. She is to be discharged on Xarelto for 21 days Subjective 24 Hr Interval Summary Free Text/Dictation Patient doing well, on room air, refusing blood pressure medications, claims that she does not have high blood pressure, elevated blood pressure may be situational, secondary to pain or discomfort. She will follow-up with her primary care physician when he comes to blood pressure control. She agrees to Xarelto for DVT prophylaxis, she took it for her last knee surgery and did well. Exam/Review of Systems Vital Signs Vitals Vital Signs Date Time Temp Pulse Resp B/P Pulse Ox O2 Delivery O2 Flow Rate FiO2 02/21/17 07:21 98.4 86 18 167/77 90 02/18/17 21:00 Nasal Cannula 2.0 Intake and Output 02/20/17 02/20/17 02/21/17 15:00 23:00 07:00 Intake Total 920 ml 400 ml Output Total 1100 ml Balance -180 ml 400 ml Exam Constitutional: alert, oriented, well developed Respiratory: clear to auscultation, normal air movement Cardiovascular: nl pulses, regular rate and rhythm Gastrointestinal: non-tender, soft Musculoskeletal: nl extremities to inspection, other Extremities: normal pulses 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, nl mental status, nl speech, nl strength Results Result Diagram: 02/21/179 02/21/17438 Results 24 hrs Laboratory Tests Test 02/21/17 04:39 White Blood Count 7.1 Red Blood Count 3.45 L Hemoglobin 10.4 L Hematocrit 30.1 L Mean Corpuscular Volume 87.2 Mean Corpuscular Hemoglobin 30.1 Mean Corpuscular Hemoglobin Concent 34.6 Red Cell Distribution Width 14.6 H Platelet Count 167 Mean Platelet Volume 10.1 Neutrophils % 71.8 Lymphocytes % 14.6 L Monocytes % 11.2 H Eosinophils % 1.3 Basophils % 0.4 Nucleated Red Blood Cells % 0.0 Neutrophils # 5.1 Lymphocytes # 1.0 Monocytes # 0.8 Eosinophils # 0.1 Basophils # 0.0 Nucleated Red Blood Cells # 0.0 Sodium Level 140 Potassium Level 3.6 Chloride Level 105 Carbon Dioxide Level 24 Anion Gap 15 Blood Urea Nitrogen 12 Creatinine 0.50 Glucose Level 98 Calcium Level 8.0 L Medications Medications Current Medications Ondansetron HCl (Zofran Inj) 4 mg Q4H PRN IV NAUSEA AND/OR VOMITING Last administered on 02/20/17 09:51; Admin Dose 4 MG; Start 02/19/17 at 16:30 Enoxaparin Sodium (Lovenox) 30 mg BID SC Last administered on 02/21/17 09:12 ; Admin Dose 30 MG; Start 02/18/17 at 21:00 Docusate Sodium (Colace) 200 mg BID PO Last administered on 02/20/17 08:49; Admin Dose 200 MG; Start 02/19/17 at 09:00; Stop 02/22/17 at 08:59 Senna/Docusate Sodium (Senokot-S) 2 tab BID PRN PO CONSTIPATION; Start at 16:30 Magnesium Hydroxide (Milk Of Mag) 30 ml HS PRN PO CONSTIPATION; Start at 16:30 Naloxone HCl (Narcan) 0.2 mg Q2M PRN IV DECREASED REPIRATORY RATE; Start at 16:30 Famotidine (Pepcid) 20 mg Q12 PO Last administered on 02/21/17 00:11; Admin Dose 20 MG; Start 02/18/17 at 21:00 Meclizine HCl (Antivert) 25 mg Q8 PRN PO VERTIGO Last administered on 06:12; Admin Dose 25 MG; Start 02/18/17 at 17:00 Hydralazine HCl (Apresoline) 10 mg Q8H PRN IV ELEVATED BLOOD PRESSURE Last administered on 02/19/17 14:15; Admin Dose 10 MG; Start 02/18/17 at 17:00 Metoclopramide HCl (Reglan) 10 mg Q6H PRN IV nausea Last administered on 15:29; Admin Dose 10 MG; Start 02/18/17 at 19:00 Tramadol HCl (Ultracet) 2 tab Q6H PRN PO pain Last administered on 02/20/17 17:28; Admin Dose 2 TAB; Start 02/18/17 at 19:00 Acetaminophen (Tylenol Tab) 650 mg Q4H PRN PO headache or fever; Start at 22:00 Amlodipine Besylate (Norvasc) 5 mg BID PO ; Start 02/20/17 at 21:00 BENOTN SEYMOUR Feb 21, 2017 10:40
--- NOTE | 2017-02-21 10:44 | PDOCDIS ---
Discharge Instructions CONDITION Patient Condition: Stable HOME CARE INSTRUCTIONS: Diet Instructions: Regular ACTIVITY: Activity Restrictions: Slowly Increase Activity FOLLOW UP/APPOINTMENTS Follow-up Plan Follow-up with primary care physician within 1 week of discharge Follow-up with orthopedic surgery, Dr Espinosa within 1-2 weeks BENTON SEYMOUR Feb 21, 2017 10:44
[2017-02-21] MEDS ORDERED: TRAM1TAB51 PO (10:46)
[2017-02-21] MEDS ORDERED: RIVA10TA PO (10:46)
[2017-02-21] MEDS ORDERED: FAMO20TA18 PO (10:47)
[2017-02-21] MEDS ORDERED: SENN-88 PO (10:47)
[2017-02-21] MEDS: MECLIZINE 25 MG TAB PO PRN (12:57)
[2017-02-21] MEDS: traMADol-APAP 37.5-325 1 TAB PO PRN (17:09)
[2017-02-21] MEDS ORDERED: RIVAROXABAN 10 MG TABLET PO SCH (17:55)
== END 2017-02-21 21:05 | disposition home health service (06) | DRG 470 ==
LOC: REC 08:33 → MS1 17:45
PROVIDERS: ADMIT Specialist; ATTEND Specialist
PROC: 0SRC0J9 Replacement of Right Knee Joint with Synthetic Substitute, Cemented, Open Approach (ICD-10-PCS; principal; 2017-02-18 12:00)
DX: M17.11 Unilateral primary osteoarthritis, right knee (principal); E03.9 Hypothyroidism, unspecified; Z85.3 Personal history of malignant neoplasm of breast; Z86.718 Personal history of other venous thrombosis and embolism
CPT/HCPCS: 73560; 73562; 80048; 81001; 83735; 84100; 85025; 86850; 86900; 86901; 87086; 88304; 88311; 97110; 97116; 97163; 97530; C1713; J0360; J0690; J1200; J1650; J2175; J2250; J2274; J2405; J2765; J2795; J3010; J7030